=== PATIENT | male | born 1995 | race African-American/Black ===

== ENCOUNTER 2019-08-06 23:10 | Emergency (ER) | payer SELFPAY ==
[~2019-08-06] VITALS: Ht 175.3 cm; Wt 63.5 kg
[2019-08-06 23:20] VITALS: BP 142/78
--- NOTE | 2019-08-06 23:20 | NUR ---
TO BED # 07 ambulatory
--- NOTE | 2019-08-06 23:25 | NUR ---
PT ARRIVED TO ED C/O RT TESTICLE PAIN X SUNDAY. RATES PAIN 7/10 AND DESCRIBES IT SORENESS AND SWELLING. PT RT TESTICLE IS REDNESS, SWELLING. PT STATES HE HAD UNPROTECTIVE SEX ON JUL 17 AND SAID A WEEK AGO HE HAD YELLOWISH FOUL SMELLING DISCHARGE FROM THE PENIS. NO FEVER, CHILLS,N,V,D. PT TOOK TYLENOL FOR THE PAIN. LAST DOSE WAS 1400. A & O X 4. VSS NKA. DENIES ANY PMH.
--- NOTE | 2019-08-06 23:25 | NUR ---
PT STATES HE HASNT GONE TO A CLINIC TO GET TESTED FOR STD OR TO SEE HIS PRIMARY.
--- NOTE | 2019-08-06 23:32 | NUR ---
DR. JOHNSON AT BEDSIDE ASSESSING PT.
[2019-08-06] MEDS: AZITHROMYCIN 250 MG TAB PO ONE (23:51)
[2019-08-06] MEDS: cefTRIAXone 250 MG in LIDOCAINE MPF 1% 0.9 ML IM ONE (23:56)
--- NOTE | 2019-08-07 00:02 | NUR ---
US TECH AT BEDSIDE.
[2019-08-07 01:08] VITALS: BP 142/78
--- NOTE | 2019-08-07 01:08 | NUR ---
Patient discharged with v/s stable. Written and verbal after care instructions given and explained. Patient alert, oriented and verbalized understanding of instructions. Ambulatory with steady gait. All questions addressed prior to discharge. ID band removed. Patient advised to follow up with PMD. Rx of MOTRIN,NORCO, AND CIPRO given. Patient educated on indication of medication including possible reaction and side effects. Opportunity to ask questions provided and answered.
[2019-08-10 06:11] LABS: CHLAMYDIA TRACHOMATIS AMP DNA Negative (Negative)
== END 2019-08-07 01:08 | disposition home or self-care (01) ==
LOC: MED 23:10
DX: I86.1 Scrotal varices (principal); F12.90 Cannabis use, unspecified, uncomplicated
CPT/HCPCS: 36415; 76870; 81002; 87491; 96372; 99284; J0696; J2001; Q0092